=== PATIENT | male | born 1960 | race Caucasian/White ===

== ENCOUNTER 2019-03-12 11:11 | Day surgery (SDC) | payer OTHER ==
[~2019-03-12] VITALS: Ht 175.3 cm; Wt 80.4 kg
[~2019-03-12 11:11] MED LIST: ALPR1 PO; AMOCLA875 PO; CYCL10 PO; MOMENI
[2019-03-12] MEDS ORDERED: TAMS.4ER PO (11:41)
== END 2019-03-12 13:03 | disposition home or self-care (01) ==
LOC: ORSCSDS 11:11
PROVIDERS: Internal Medicine Gastroenterology
PROC: 0DJD8ZZ Inspection of Lower Intestinal Tract, Via Natural or Artificial Opening Endoscopic (ICD-10-PCS; principal; 2019-03-12 12:30)
DX: Z12.11 Encounter for screening for malignant neoplasm of colon (principal); G47.33 Obstructive sleep apnea (adult) (pediatric); Z79.899 Other long term (current) drug therapy
CPT/HCPCS: J2704; J7120

== ENCOUNTER 2019-05-21 08:13 | Day surgery (SDC) | payer OTHER ==
[~2019-05-21] VITALS: Ht 175.3 cm; Wt 81.1 kg
[~2019-05-21 08:13] MED LIST changes: +TAMS.4ER PO
[2019-05-21] MEDS ORDERED: FISH OIL 1,0001 EAC2 PO (09:08)
== END 2019-05-21 10:42 | disposition home or self-care (01) ==
LOC: ORSCSDS 08:13
PROVIDERS: Internal Medicine Gastroenterology
PROC: 0DBP8ZX Excision of Rectum, Via Natural or Artificial Opening Endoscopic, Diagnostic (ICD-10-PCS; principal; 2019-05-21 09:45)
PROC: 0DBK8ZX Excision of Ascending Colon, Via Natural or Artificial Opening Endoscopic, Diagnostic (ICD-10-PCS; principal; 2019-05-21 09:45)
DX: Z12.11 Encounter for screening for malignant neoplasm of colon (principal); D12.2 Benign neoplasm of ascending colon; K62.1 Rectal polyp; K64.8 Other hemorrhoids; G47.33 Obstructive sleep apnea (adult) (pediatric)
CPT/HCPCS: 88305; J2704; J7120

== ENCOUNTER → 2021-02-04 | Outpatient (CLI) | payer OTHER ==
[~2021-02-04] MED LIST changes: +FISH OIL 1,0001 EAC2 PO
== END | disposition home or self-care (01) ==
LOC: LAB SHORT 17:23 → LAB 17:23
DX: Z20.822 Contact with and (suspected) exposure to COVID-19 (principal)
CPT/HCPCS: U0003

== ENCOUNTER 2021-12-18 09:44 | Day surgery (SDC) | payer OTHER | END 2021-12-18 10:20 | disposition home or self-care (01) | LOC: ORSCSDS 09:44 | DX: Z86.010 Personal history of colon polyps (principal); Z53.9 Procedure and treatment not carried out, unspecified reason; Z80.0 Family history of malignant neoplasm of digestive organs | CPT/HCPCS: J2704; J7120 ==

== ENCOUNTER 2022-03-25 11:46 | Day surgery (SDC) | payer OTHER ==
[~2022-03-25] VITALS: Ht 175.3 cm; Wt 74.8 kg
[2022-03-25] MEDS ORDERED: ERGO400 (12:15)
[2022-03-25] MEDS ORDERED: TURMERIC1 GM (12:16)
== END 2022-03-25 14:12 | disposition home or self-care (01) ==
LOC: ORSCSDS 11:46
PROVIDERS: Student in an Organized Health Care Education/Training Program
PROC: 0DBK8ZX Excision of Ascending Colon, Via Natural or Artificial Opening Endoscopic, Diagnostic (ICD-10-PCS; principal; 2022-03-25 13:15)
PROC: 0DBM8ZX Excision of Descending Colon, Via Natural or Artificial Opening Endoscopic, Diagnostic (ICD-10-PCS; principal; 2022-03-25 13:15)
PROC: 0DBL8ZX Excision of Transverse Colon, Via Natural or Artificial Opening Endoscopic, Diagnostic (ICD-10-PCS; principal; 2022-03-25 13:15)
PROC: 0DBN8ZX Excision of Sigmoid Colon, Via Natural or Artificial Opening Endoscopic, Diagnostic (ICD-10-PCS; principal; 2022-03-25 13:15)
PROC: 0DBH8ZX Excision of Cecum, Via Natural or Artificial Opening Endoscopic, Diagnostic (ICD-10-PCS; principal; 2022-03-25 13:15)
DX: Z12.11 Encounter for screening for malignant neoplasm of colon (principal); Z86.010 Personal history of colon polyps; Z80.0 Family history of malignant neoplasm of digestive organs; D12.0 Benign neoplasm of cecum; D12.3 Benign neoplasm of transverse colon; D12.4 Benign neoplasm of descending colon; K63.5 Polyp of colon
CPT/HCPCS: J2704; J7120

== ENCOUNTER 2024-11-30 10:09 | Emergency (ER) | payer OTHER ==
[~2024-11-30] VITALS: Ht 175.3 cm; Wt 80.7 kg
[~2024-11-30 10:09] MED LIST changes: +ERGO400; +TURMERIC1 GM
[2024-11-30 11:15] LABS: BASOPHILS ABSOLUTE AUTO 0.06 K/mm3 (0.00-0.23); BASOPHILS PERCENT AUTO 1 % (0-2); EOSINOPHILS ABSOLUTE AUTO 0.03 K/mm3 (0.00-0.68); EOSINOPHILS PERCENT AUTO 0 % (0-6); Hematocrit 44.1 % (37.0-53.0); Hemoglobin 15.0 g/dL (13.5-17.5); IMMATURE GRAN ABSOLUTE AUTO 0.02 K/mm3 (0.00-0.10); IMMATURE GRAN PERCENT AUTO 0 % (0-1); LYMPHOCYTES ABSOLUTE AUTO 1.38 K/mm3 (0.84-5.20); LYMPHOCYTES PERCENT AUTO 15 % (21-46); MONOCYTES ABSOLUTE AUTO 0.70 K/mm3 (0.16-1.47); MONOCYTES PERCENT AUTO 7 % (4-13); Mean Corpuscular HGB Conc 34.0 g/dL (31.5-36.5); Mean Corpuscular Volume 94 fL (80-100); NEUTROPHILS ABSOLUTE AUTO 7.23 K/mm3 (1.96-9.15); NEUTROPHILS PERCENT AUTO 77 % (41-73); NRBC ABSOLUTE 0.00 K/mm3 (0.00-0.02); NRBC Auto 0.0 /100 WBC (0.0-0.2); Platelet Count 256 K/mm3 (150-400); RDW Coefficient Variation 12.4 % (11.7-14.2); RDW Standard Deviation 43.2 fL (35.1-46.3)
[2024-11-30 11:49] LABS: Alanine Aminotransfer (ALT/SGP 27.0 U/L (12-78); Albumin, Blood 3.8 g/dL (3.4-5.0); Albumin/Globulin Ratio 1.0 (0.8-1.8); Anion Gap 9.0 mmol/L (3-11); Aspartate Aminotrans (AST/SGOT 22.0 U/L (12-37); Bilirubin, Total 0.5 mg/dL (0.1-1.0); Blood Urea Nitrogen 39.0 mg/dL (8-24); CO2, Blood 27.0 mmol/L (21-32); Calcium, Blood 9.0 mg/dL (8.5-10.1); Chloride, Blood 103.0 mmol/L (98-108); Creatinine, Blood 1.93 mg/dL (0.60-1.20); Globulin, Blood 3.7 g/dL (2.2-4.0); Glucose, Blood 129.0 mg/dL (70-99); Potassium, Blood 3.9 mmol/L (3.5-5.5); Sodium, Blood 135.0 mmol/L (136-145); Total Protein, Blood 7.5 g/dL (6.4-8.2)
[2024-11-30 11:59] LABS: Source, Urine Clean Catch
[2024-11-30 12:16] VITALS: BP 139/86
[2024-11-30 12:16] LABS: Bilirubin, Urine Neg (Neg); Glucose Qualitative, Urine Neg (Neg); Ketones, Urine Neg (Neg); Leukocyte Esterase, Urine 1+ (Neg); Protein, Urine Neg (Neg); Specific Gravity, Urine 1.015 (1.003-1.022); Urobilinogen, Urine NORM (Normal)
[2024-11-30 12:20] LABS: Color, Urine Pale Yellow (P-Yellow)
[2024-11-30 13:18] LABS: White Blood Cells, Urine 0-2 /hpf (0-5)
[2024-11-30] MEDS ORDERED: NS 1,000 ML IV SCH (14:00)
[2024-11-30] MEDS ORDERED: Ketorolac Tromethamine 15mg Vial IV ONE (14:00)
== END 2024-11-30 16:28 | disposition short-term general hospital (02) ==
LOC: ER 10:09
PROVIDERS: Student in an Organized Health Care Education/Training Program
DX: N13.2 Hydronephrosis with renal and ureteral calculous obstruction (principal); N17.9 Acute kidney failure, unspecified; Z79.899 Other long term (current) drug therapy
CPT/HCPCS: 36415; 74177; 80053; 81001; 83690; 85025; 87086; 93005; 93010; 96361; 96374-59; 99285-25; J1885; J7030; Q9967

== ENCOUNTER 2025-01-18 12:34 | Day surgery (SDC) | payer OTHER ==
[~2025-01-18] VITALS: Ht 175.3 cm; Wt 78.2 kg
[2025-01-18] MEDS ORDERED: TAMSULOSIN HCL0.4 M1 (12:55)
[2025-01-18] MEDS ORDERED: Amlodipine Bes2.5 MG (12:55)
[2025-01-18 15:07] VITALS: BP 123/67
== END 2025-01-18 15:13 | disposition home or self-care (01) ==
LOC: ORSCSDS 12:34
PROVIDERS: Specialist
PROC: 0DBH8ZX Excision of Cecum, Via Natural or Artificial Opening Endoscopic, Diagnostic (ICD-10-PCS; principal; 2025-01-18 14:15)
PROC: 0DBM8ZX Excision of Descending Colon, Via Natural or Artificial Opening Endoscopic, Diagnostic (ICD-10-PCS; principal; 2025-01-18 14:15)
PROC: 0DBK8ZX Excision of Ascending Colon, Via Natural or Artificial Opening Endoscopic, Diagnostic (ICD-10-PCS; principal; 2025-01-18 14:15)
DX: Z12.11 Encounter for screening for malignant neoplasm of colon (principal); Z86.0101 Personal history of adenomatous and serrated colon polyps; D12.0 Benign neoplasm of cecum; D12.2 Benign neoplasm of ascending colon; D12.4 Benign neoplasm of descending colon; Z80.0 Family history of malignant neoplasm of digestive organs; K64.8 Other hemorrhoids; K64.4 Residual hemorrhoidal skin tags; I10 Essential (primary) hypertension; Z79.899 Other long term (current) drug therapy
CPT/HCPCS: 88305; J2704; J7120

== ENCOUNTER 2025-02-22 08:24 | Day surgery (SDC) | payer OTHER ==
[2025-02-22] VITALS (11 sets, daily range): BP systolic 117–169; BP diastolic 60–98
[~2025-02-22] VITALS: Ht 172.7 cm; Wt 80.7 kg
[~2025-02-22 08:24] MED LIST changes: +AMLO5 PO; +B-12500 MC2 PO; +CeFAZolin Sodium 2,000 MG in NS 100 ML IV SCH; +DHA FROM ALGAE200 MG PO; +FERSU300; +FentaNYL Citrate 50 MCG/ML 2 ML Injection ONE; +MAGNESIUM OXID500 MG; +Vitamin D1000 UNI1
[2025-02-22] MEDS ORDERED: Rocuronium Bromide 10 MG/ML 5ML Injection IV ONE ×2 (08:26→10:31)
[2025-02-22] MEDS ORDERED: Bupivacaine 0.5% HCl 5 MG/ML 30MLVIAL ONE (08:38)
[2025-02-22] MEDS ORDERED: FentaNYL Citrate 50 MCG/ML 2 ML Injection IV PRN ×2 (08:40)
[2025-02-22] MEDS ORDERED: Prochlorperazine Edisylate 10 mg Vial IV PRN (08:40)
[2025-02-22] MEDS ORDERED: Albuterol 2.5 MG/3 ML VIAL INH PRN (08:40)
[2025-02-22] MEDS ORDERED: HYDROmorphone HCl/Pf 1MG SYR IV PRN (08:45)
[2025-02-22] MEDS ORDERED: Midazolam HCl 1MG / ML 2ML Vial IV PRN (08:45)
[2025-02-22] MEDS ORDERED: Ondansetron HCl 2 MG / ML 2ML Vial IV PRN (08:45)
--- NOTE | 2025-02-22 09:13 | NUR ---
History, Chart, Medications and Allergies reviewed before start of procedure. Pre-Op teaching done. Pt verbalizes understanding. Ambulatory in [facility]. Patient States Post-Procedure ride home has been arranged. Patient confirms NPO status and agrees with scheduled surgery.
[2025-02-22] MEDS ORDERED: Lidocaine HCl 4% 5 ML SDA ONE ×2 (10:13)
[2025-02-22] MEDS ORDERED: Dexamethasone Sod Phos 10 MG/ML 1ML VIAL ONE (10:23)
[2025-02-22] MEDS ORDERED: Ondansetron HCl 2 MG / ML 2ML Vial ONE (10:23)
[2025-02-22] MEDS ORDERED: Ketorolac Tromethamine 30mg Vial ONE (10:33)
[2025-02-22] MEDS ORDERED: Sugammadex Sodium 200 MG/2ML SDV (100 MG/ML) ONE (10:33)
[2025-02-22] MEDS ORDERED: ePHEDrine Sulfate 50 MG/ML 1ML Injection ONE (11:14)
[2025-02-22] MEDS ORDERED: OxyCODONE 5 mg/Acetamin 325 mg TABLET PO PRN (11:50)
[2025-02-22] MEDS ORDERED: HYDROmorphone HCl/Pf 1MG SYR ONE ×2 (12:17→12:35)
--- NOTE | 2025-02-22 13:57 | NUR ---
Discharge instructions reviewed with patient. Patient verbalizes understanding. Copy given to patient to take home. Dressings X3 c/d/i. Prescription placed in discharge folder. Patient States Post-Procedure ride home has been arranged. Discharged via wheelchair to private car for ride home.
== END 2025-02-22 13:57 | disposition home or self-care (01) ==
LOC: ORSCMMR 08:24 → ORD 09:45 → ORSCMMR 13:57
PROVIDERS: Surgery
PROC: 8E0W4CZ Robotic Assisted Procedure of Trunk Region, Percutaneous Endoscopic Approach (ICD-10-PCS; principal; 2025-02-22 09:45)
PROC: 0YUA4JZ Supplement Bilateral Inguinal Region with Synthetic Substitute, Percutaneous Endoscopic Approach (ICD-10-PCS; principal; 2025-02-22 09:45)
DX: K40.20 Bilateral inguinal hernia, without obstruction or gangrene, not specified as recurrent (principal); I10 Essential (primary) hypertension; G47.33 Obstructive sleep apnea (adult) (pediatric); K21.9 Gastro-esophageal reflux disease without esophagitis; Z79.899 Other long term (current) drug therapy
CPT/HCPCS: A9270; C1781; J0690; J1100; J1171; J1885; J2003; J2405; J2704; J3010; J7120